=== PATIENT | male | born 1950 | race Caucasian/White ===

== ENCOUNTER → 2016-07-29 | Outpatient (CLI) | payer OTHER ==
[2013-10-26 14:54] VITALS: BP 148/68
[~2016-07-29] MED LIST: ASPI-252 PO; ATOR10TA60 PO; BUDE10.2 IH; CARV3.122 PO; HYDR12.58 PO; MULT-18 PO; REGADENOSON 0.4 MG/5 ML DISP.SYRIN. IV ONE; VENTOLIN HFA18 GM INH
--- NOTE | 2016-07-29 13:34 | RAD ---
APPROVED REPORT Test Type: Pharmacological Stress Nurse/Tech: Loulou Medeiros R.N. Test Indications: CAD Cardiac History: Hypertension, former smoker, CAD, Stents, CABG in 2011 Medications: See Electronic Medical Record Medical History: See Electronic Medical Record Resting ECG: NSR Resting Heart Rate: 72 bpm Resting Blood Pressure: 120/76mmHg Pretest Chest Pain: No chest pain Nurse/Tech Notes S1S2, lungs sound clear Consent: The procedure was explained to the patient in lay terms. Informed consent was witnessed. Kiran eout was entered into [employer]. History and Stress Test performed by Loulou Medeiros R.N. Pharm. Details Pharmacologic stress testing was performed using 0.4mg per 5ml of regadenoson given intravenously ove r 7-10 seconds. Stress Symptoms Dyspnea POST EXERCISE Reason for Termination: Infusion complete Max HR: 117 bpm Max Blood Pressure: 141/65mmHg Blood Pressure response to exercise: Normal blood pressure response during stress. Chest Pain: No. Arrhythmia: Yes. PAC's and occ PVC ST Change: No. INTERPRETATION Stress EKG Conclusion: No evidence of stress induced EKG changes. Imaging Protocol IMAGE PROTOCOL: Rest Tc-99m/stress Tc-99m 1 day Rest: Stress: Viability: Radiopharm.Tc99m FvtbctkakKw24z Sestamibi Dose12.7mCi 36.4mCi Duration 15min. 10min. Img Date 07/29/2016 07/29/2016 Inj-Img Qibm67pzr. 60min. Rest Admin Site:IV - Right AntecubitalAdministrator:RT Tomasa (R)(N) Stress Admin Site: IV - Right AntecubitalAdministrator: STARLA Estrada STRESS DATA End Diast. Vol.93.0mlAv. Heart Rate83.0bpm End Syst. Vol.42.0mlCO Index BSA0.0L/min Myocardial Oeop496.0gEject. Oyleenbw81.0% Stress Rates Pk. Fill Rate3.26EDV/secLVtime Pk. Fill 209.18msec Pk. Empty Rate4.03ESV/secLVtime Pk. Eject91.98msec 05/07 Pk. Fill0.66EDV/sec Stress Scores Regional WT2.00Summed WT15.00 Regional WM0.00Summed WM22.00 LV Perfusion There is a large sized, moderate to severe intensity, inferior, inferolateral, lateral basal to mid v entrical wall that is partially reversible suggestive of prior infarct with kalia-infarct viability. Wall Motion Mild inferior hypokinesis. LV Perf. Quant 17 Seg. SSS12.00 17 Seg. SRS9.00 17 Seg. SDS4.00 Stress Defect Extent (% LAD)0.00Rest Defect Extent (% LAD)0.00Rev. Defect Extent (% LAD)0.00 Stress Defect Extent (% LCX) 92.50Rest Defect Extent (% LCX)62.50Rev. Defect Extent (% LCX)32.50 Stress Defect Extent (% RCA)11.10Rest Defect Extent (% RCA)20.00Rev. Defect Extent (% RCA)0.00 Stress Defect Extent (% ABE)23.90Rest Defect Extent (% ABE)18.00Rev. Defect Extent (% ABE)7.60 Other Information Quality:Average Risk Assessment: Moderate Risk Conclusion 1. No EKG evidence of stress induced changes. 2. Large basal to mid inferolateral wall defect suggestive of prior infarct with mild kalia-infarct re versibility. 3. Normal EF at > 60% 4. Moderate risk study
== END | disposition home or self-care (01) ==
LOC: NM 08:20
PROVIDERS: ATTEND Internal Medicine Cardiovascular Disease
DX: I25.10 Atherosclerotic heart disease of native coronary artery without angina pectoris (principal)
CPT/HCPCS: 78452; 93017; 96374; 96375; 96376; A9500; J2785

== ENCOUNTER → 2016-12-18 | Outpatient (CLI) | payer OTHER ==
[2013-10-26 14:54] VITALS: BP 148/68
[~2016-12-18] MED LIST changes: -REGADENOSON 0.4 MG/5 ML DISP.SYRIN. IV ONE
--- NOTE | 2016-12-18 14:08 | CARD ---
APPROVED REPORT EXAM: Two-dimensional and M-mode echocardiogram with Doppler and color Doppler. Other Information Quality : GoodHR: 66bpm Rhythm : NSR INDICATION Cardiac Disease: CAD 2D DIMENSIONS RVDd3.5 (2.9-3.5cm)Left Atrium(2D)3.2 (1.6-4.0cm) IVSd1.2 (0.7-1.1cm)Aortic Root(2D)3.1 (2.0-3.7cm) LVDd4.3 (3.9-5.9cm)LVOT Diameter2.3 (1.8-2.4cm) PWd1.2 (0.7-1.1cm)LVDs3.8 (2.5-4.0cm) FS (%) 11.8 %SV21.6 ml Aortic Valve AoV Peak Nehemiah.101.7cm/sAoV VTI24.0cm AO Peak GR.4.1mmHgLVOT Peak Nehemiah.85.8cm/s AO Mean GR.3mmHgAVA (VMAX)3.55cm2 Mitral Valve MV E Otlqhifl92.6cm/sMV DECEL YNRJ111vu MV A Lobaxucy04.2cm/sE/A Ratio0.8 MV A Mupiiabk505bk Tricuspid Valve TR P. Rslkvqza325to/sTR Peak Gr.28mmHg Pulmonary Vein S1 Ypqnuqxe71.7cm/sD2 Yxkmgscx69.3cm/s PVa mftdksau68jbcq LEFT VENTRICLE The left ventricle is normal size. There is mild concentric left ventricular hypertrophy. Left ventri krista systolic function is mildly impaired. The Ejection Fraction is estimated at 40% Transmitral Doppl er flow pattern is Grade I-abnormal relaxation pattern. No left ventricle thrombus noted on this stud y. RIGHT VENTRICLE The right ventricle is normal size. There is normal right ventricular wall thickness. The right ventr icular systolic function is normal. ATRIA The left atrium size is normal. The right atrium size is normal. The interatrial septum is intact wit h no evidence for an atrial septal defect or patent foramen ovale as noted on 2-D or Doppler imaging. AORTIC VALVE The aortic valve is mildly thickened. The aortic valve is trileaflet. Doppler and Color Flow revealed no significant aortic regurgitation. There is no significant aortic valvular stenosis. MITRAL VALVE The mitral valve leaflets are thickened. There is no evidence of mitral valve prolapse. There is no m itral valve stenosis. Doppler and Color Flow revealed trace mitral regurgitation. TRICUSPID VALVE Doppler and Color Flow revealed trace tricuspid regurgitation. The pulmonary artery systolic pressure is estimated at 31 mmHg. PULMONIC VALVE The pulmonary valve is not well visualized but appears to open adequately. Doppler and Color Flow rev ealed pulmonic valvular regurgitation. There is no pulmonic valvular stenosis by spectral Doppler. GREAT VESSELS The aortic root is normal in size. The ascending aorta is normal in size. The pulmonary artery is nor mal. The IVC is normal in size and collapses >50% with inspiration. PERICARDIAL EFFUSION There is no evidence of significant pericardial effusion. Critical Notification Critical Value: No <Conclusion> The left ventricle is normal size. Left ventricle systolic function is mildly impaired. The Ejection Fraction is estimated at 40% There is mild concentric left ventricular hypertrophy. There is no significant aortic valvular stenosis. Doppler and Color Flow revealed no significant aortic regurgitation. Doppler and Color Flow revealed trace mitral regurgitation. Doppler and Color Flow revealed trace tricuspid regurgitation. The pulmonary artery systolic pressure is estimated at 31 mmHg.
== END | disposition home or self-care (01) ==
LOC: ECHO 10:47
PROVIDERS: ATTEND Internal Medicine Cardiovascular Disease
DX: I51.7 Cardiomegaly (principal); I25.10 Atherosclerotic heart disease of native coronary artery without angina pectoris
CPT/HCPCS: 93306

== ENCOUNTER → 2017-12-17 | Outpatient (CLI) | payer OTHER ==
[2013-10-26 14:54] VITALS: BP 148/68
--- NOTE | 2017-12-17 12:10 | CARD ---
MR#: [id number] Date of Study: 12/17/2017 Ordering Physician: HARRY SALGADO, Referring Physician: HARRY SALGADO Tech: Yasemin Moon RDCS APPROVED REPORT EXAM: Two-dimensional and M-mode echocardiogram with Doppler and color Doppler. Other Information Quality : Good INDICATION Cardiac Disease: CAD Surgery/Intervention CABD DIMENSIONS RVDd2.7 (2.9-3.5cm)Left Atrium(2D)3.5 (1.6-4.0cm) IVSd1.1 (0.7-1.1cm)Aortic Root(2D)3.4 (2.0-3.7cm) LVDd5.0 (3.9-5.9cm)LVOT Diameter2.2 (1.8-2.4cm) PWd1.0 (0.7-1.1cm)LVDs4.2 (2.5-4.0cm) FS (%) 25.0 %SV42.5 ml LVEF(%)50.0 (>50%) Aortic Valve AoV Peak Nehemiah.97.5cm/sAoV VTI18.9cm AO Peak GR.3.8mmHgLVOT Peak Nehemiah.77.3cm/s AO Mean GR.2mmHgAVA (VMAX)3.13cm2 ATUL (VTI)3.40cm2 Mitral Valve MV E Xbxwyzqe62.1cm/sMV DECEL YTGF115ea MV A Zyexujww31.5cm/sE/A Ratio0.7 Tricuspid Valve TR P. Olbdiylh315px/sRAP JNEDFQXD5irJd TR Peak Gr.27ukGcZLXS80ikNx Pulmonary Vein S1 Xhoinbyh41.9cm/sD2 Edooiuax18.3cm/s LEFT VENTRICLE The left ventricle is normal size. There is normal left ventricular wall thickness. Left ventricle sy stolic function is low normal. The Ejection Fraction is 50-55%. There is normal LV segmental wall mot ion. Transmitral Doppler flow pattern is Grade I-abnormal relaxation pattern. RIGHT VENTRICLE The right ventricle is normal size. The right ventricular systolic function is normal. ATRIA The left atrium size is normal. The right atrium size is normal. The interatrial septum is intact wit h no evidence for an atrial septal defect or patent foramen ovale as noted on 2-D or Doppler imaging. AORTIC VALVE The aortic valve is not well visualized. Doppler and Color Flow revealed trace aortic regurgitation. There is no significant aortic valvular stenosis. MITRAL VALVE The mitral valve is calcified but opens well. There is no evidence of mitral valve prolapse. There is no mitral valve stenosis. Doppler and Color-flow revealed trace mitral regurgitation. TRICUSPID VALVE The tricuspid valve is normal in structure and function. Doppler and Color Flow revealed no tricuspid valve regurgitation noted. There is no tricuspid valve stenosis. PULMONIC VALVE The pulmonic valve is not well visualized. Doppler and Color Flow revealed no pulmonic valvular regur gitation. There is no pulmonic valvular stenosis. GREAT VESSELS The aortic root is normal in size. The ascending aorta is not well seen. The IVC is normal in size an d collapses >50% with inspiration. PERICARDIAL EFFUSION There is no evidence of significant pericardial effusion. Critical Notification Critical Value: No <Conclusion> Left ventricle systolic function is low normal. The Ejection Fraction is 50-55%. There is normal LV segmental wall motion. Signed by : Nick Stoner, Electronically Approved : 12/17/2017 12:08:49
== END | disposition home or self-care (01) ==
LOC: ECHO 10:58
PROVIDERS: ATTEND Internal Medicine Cardiovascular Disease
DX: I25.10 Atherosclerotic heart disease of native coronary artery without angina pectoris (principal); I10 Essential (primary) hypertension; E78.00 Pure hypercholesterolemia, unspecified
CPT/HCPCS: 93306

== ENCOUNTER → 2018-07-03 | Outpatient (CLI) | payer OTHER ==
[2018-02-04 11:00] VITALS: BP 119/72
[~2018-07-03] MED LIST changes: +ASPI-630 PO; +CARV3.1210 PO; -CARV3.122 PO; +DONE10TA61 PO; +IOHEXOL 240 MG/ML 50ML VIAL. PO ONE; +IOHEXOL 300 MG/ML 100ML VIAL. IV ONE
[2018-07-03 09:55] LABS: CREATININE 1.1 mg/dL (0.7-1.3); GFR 66.6
--- NOTE | 2018-07-03 17:23 | RAD ---
CT study of chest and abdomen and pelvis with contrast Clinical indications: 20 pound weight loss over 4 months. TECHNIQUE: After IV infusion of 75 cc of Omnipaque 300, helical CT scanning of the chest and abdomen and pelvis was performed. GI contrast was administered per mouth. PQRS compliance Statement One or more of the following individualized dose reduction techniques were utilized for this study: 1. Automated exposure control 2. Adjustment of the mA and/or kV according to patient size 3. Use of iterative reconstruction technique COMPARISON: No previous chest or abdomen and pelvis CT. CHEST CT: No focal aneurysmal dilatation of the thoracic aorta is seen. No enlarged thoracic lymphadenopathy is evident. Calcified granulomatous lymph nodes of the right hilum are seen. Calcified atheromatous disease of the coronary arteries is seen. The heart size is normal and no pericardial effusion is seen. Calcified atheromatous disease of the coronary arteries is seen. There is wall thickening of the esophagus which may be seen with reflux esophagitis. Calcified granuloma of the posterior right lower lobe is seen. No other lung mass or consolidative lung infiltrate is seen. No pleural effusion or pneumothorax is evident. The proximal bronchial tree is patent. No lytic process is seen. IMPRESSION: No acute abnormality of the chest. Normal heart size. Calcified atheromatous disease of the coronary arteries. There is wall thickening of the esophagus which may be seen with reflux esophagitis. ABDOMEN AND PELVIS CT: Subcentimeter small hypodense nodule of the dome of the right lobe liver is seen. Small subcentimeter hypodense nodule of the caudate lobe is seen adjacent to the hepatic veins. No hepatic mass is seen. The spleen is not enlarged. Pancreas is unremarkable. The gallbladder is normal. No biliary ductal dilatation is seen. No adrenal mass is evident. 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 Left kidney is normal without hydronephrosis or hydroureter. Urinary bladder wall is smooth. There is mild focal aneurysmal dilatation of the distal abdominal aorta just above the bifurcation which measures 3.0 cm in greatest caliber. No enlarged abdominal or pelvic lymphadenopathy is evident. The appendix is normal. No obstructive bowel pattern is evident. No free air or free fluid or mesenteric edema is seen. No lytic process is seen. IMPRESSION: 2 small subcentimeter indeterminate hypodense nodules of the liver are seen. If there is no clinical history of primary malignancy, then these most likely represent small cysts. Small distal abdominal aortic aneurysm measuring 3 cm greatest caliber. No other acute abnormality of the abdomen or pelvis. Electronically signed by: Andrea Correa MD (07/03/2018 5:20 PM) [facility]
== END | disposition home or self-care (01) ==
LOC: CT 09:07
PROVIDERS: ATTEND Family Medicine
DX: I71.4 Abdominal aortic aneurysm, without rupture (principal); I25.10 Atherosclerotic heart disease of native coronary artery without angina pectoris; J84.10 Pulmonary fibrosis, unspecified; K76.89 Other specified diseases of liver; R63.4 Abnormal weight loss
CPT/HCPCS: 36415; 71260; 74177; 82565; 84520; Q9966; Q9967

== ENCOUNTER → 2019-02-04 | Outpatient (CLI) | payer OTHER ==
[2018-02-04 11:00] VITALS: BP 119/72
[~2019-02-04] MED LIST changes: -IOHEXOL 240 MG/ML 50ML VIAL. PO ONE; -IOHEXOL 300 MG/ML 100ML VIAL. IV ONE
--- NOTE | 2019-02-04 10:50 | CARD ---
MR#: [id number] Date of Study: 02/04/2019 Ordering Physician: HARRY SANFORD, Referring Physician: HARRY SANFORD Tech: Sarah Brown RDCS APPROVED REPORT EXAM: Two-dimensional and M-mode echocardiogram with Doppler and color Doppler. Other Information Quality : AverageHR: 63bpm Rhythm : NSR INDICATION CAD 2D DIMENSIONS RVDd3.0 (2.9-3.5cm)Left Atrium(2D)4.0 (1.6-4.0cm) IVSd1.2 (0.7-1.1cm)Aortic Root(2D)3.3 (2.0-3.7cm) LVDd4.9 (3.9-5.9cm)LVOT Diameter2.2 (1.8-2.4cm) PWd1.0 (0.7-1.1cm)IVSs1.4 (0.8-1.2cm) LVDs4.0 (2.5-4.0cm)FS (%) 17.0 % PWs1.2 (0.8-1.2cm)SV39.5 ml Aortic Valve AoV Peak Nehemiah.91.9cm/sAoV VTI17.8cm AO Peak GR.3.4mmHgLVOT Peak Nehemiah.73.8cm/s LVOT VTI 17.99cmAO Mean GR.2mmHg ATUL (VMAX)2.51zm0RNK (VTI)2.80cm2 Mitral Valve MV E Yvpgvsaa14.2cm/sMV DECEL TXOC487xo MV A Jadltxin49.2cm/sMV KHC85hc E/A Ratio0.7MVA (PHT)2.27cm2 TDI E/Lateral E'4.8E/Medial E'7.9 Pulmonary Valve PV Peak Lnrcvkzk87.9cm/sPV Peak Grad.1mmHg Tricuspid Valve TR P. Vmpzqnqw461km/sRAP RNWGVZVF0ifMf TR Peak Gr.05skNkZNLO28vwJn Pulmonary Vein S1 Fmxnuymy16.6cm/sD2 Tktbflmp37.1cm/s LEFT VENTRICLE The left ventricle is normal size. There is mild concentric left ventricular hypertrophy. The left ve ntricular systolic function is low normal. The Ejection Fraction is 50%. There is normal LV segmental wall motion. Transmitral Doppler flow pattern is Grade I-abnormal relaxation pattern. RIGHT VENTRICLE The right ventricle is normal size. There is normal right ventricular wall thickness. The right ventr icular systolic function is normal. ATRIA The left atrium size is normal. The right atrium size is normal. The interatrial septum is intact wit h no evidence for an atrial septal defect or patent foramen ovale as noted on 2-D or Doppler imaging. AORTIC VALVE The aortic valve is normal in structure and function. The aortic valve is trileaflet. Doppler and Col or Flow revealed trace aortic regurgitation. There is no significant aortic valvular stenosis. There is no aortic valvular vegetation. MITRAL VALVE The mitral valve is thickened but opens well. There is no evidence of mitral valve prolapse. There is no mitral valve stenosis. Doppler and Color-flow revealed trace to mild mitral regurgitation. TRICUSPID VALVE The tricuspid valve is normal in structure and function. Doppler and Color Flow revealed trace tricus pid regurgitation. The PA pressure was estimated at 25 mmHg. There is no tricuspid valve prolapse or vegetation. There is no tricuspid valve stenosis. PULMONIC VALVE The pulmonic valve is not well visualized. GREAT VESSELS The aortic root is normal in size. The ascending aorta is normal in size. The IVC is normal in size a nd collapses >50% with inspiration. PERICARDIAL EFFUSION There is no evidence of significant pericardial effusion. Critical Notification Critical Value: No <Conclusion> The left ventricular systolic function is low normal. The Ejection Fraction is 50%. There is normal LV segmental wall motion. Transmitral Doppler flow pattern is Grade I-abnormal relaxation pattern. Trace to mild mitral regurgitation. Trace tricuspid regurgitation. The PA pressure was estimated at 25 mmHg. There is no evidence of significant pericardial effusion. Signed by : Harry Sanford, Electronically Approved : 02/04/2019 10:49:53
== END | disposition home or self-care (01) ==
LOC: ECHO 09:49
PROVIDERS: ATTEND Internal Medicine Cardiovascular Disease
DX: I34.0 Nonrheumatic mitral (valve) insufficiency (principal); I51.7 Cardiomegaly; I25.10 Atherosclerotic heart disease of native coronary artery without angina pectoris
CPT/HCPCS: 93306

== ENCOUNTER 2020-04-03 19:17 | Emergency (ER) | payer MEDICARE, OTHER ==
[~2020-04-03] VITALS: Ht 182.9 cm; Wt 111.0 kg
[2020-04-03] MEDS ORDERED: AZITHRMYCN 500MG IVPB FOR OMNI 250 ML IV ONE (19:45)
[2020-04-03] MEDS ORDERED: IV NORMAL SALINE 1000ML BAG 1,000 ML IV ONE ×2 (19:45)
[2020-04-03] MEDS ORDERED: ACETAMINOPHEN 650 MG SUPP.RECT. PR ONE (19:45)
--- NOTE | 2020-04-03 19:47 | PHYS DOC ---
Past Medical History Past Medical History: CAD, High Cholesterol, Heart Disease, Hypertension Past Surgical History: Coronary Bypass Surgery, Other Additional Past Surgical Histo: 4x bypass Smoking Status: Former Smoker Alcohol Use: None Drug Use: None General Adult HPI: HPI: 70 yo M PMH CAD w/cabg, HTN, PAD, COPD/former smoker, dementia and HLD presents to the ed with concern for cough and shortness of breath for the past week. reports patient has been less active/not getting out of bed, drinking less water and has dark urine. Symptoms started shortly after Thanksgiving. No known family members with Covid. Review of Systems: Review of Systems: ROS: Unobtainable due to dementia Heart Score: Risk Factors: Risk Factors: DM, Current or recent (<one month) smoker, HTN, HLP, family history of CAD, obesity. Risk Scores: Score 0 - 3: 2.5% MACE over next 6 weeks - Discharge Home Score 4 - 6: 20.3% MACE over next 6 weeks - Admit for Clinical Observation Score 7 - 10: 72.7% MACE over next 6 weeks - Early Invasive Strategies Allergies: Allergies: Allergies Coded Allergies Type Severity Reaction Last Updated Verified Penicillins Allergy Mild 10/26/13 Yes Sulfa (Sulfonamide Antibiotics) Allergy Mild 10/26/13 Yes nitroglycerin Allergy Mild 10/26/13 Yes Physical Exam: PE: Constitutional: no acute distress, non-toxic appearance. HENT: Normocephalic, atraumatic, Eyes: EOMI, conjunctiva normal, no discharge. Neck: Normal range of motion, supple, Cardiovascular: S1/2 present, regular rhythm Lungs & Thorax: Not requiring any supplemental oxygen, bilateral equal chest rise, no tachypnea or increased work of breathing Abdomen: soft, no tenderness, Skin: Warm, dry, no erythema, no rash. [] Extremities: No tenderness, no cyanosis, no edema Neurologic: Moving all 4 extremities, no gaze preference, no facial droop Psychologic: Unobtainable due to dementia EKG: EKG: Sinus tachycardia at 101 bpm, right axis deviation, QRS 123, QTC 465, T wave inversion lead III and V2, right bundle branch block present, no ST elevations or ST depressions Radiology/Procedures: Radiology/Procedures: IMAGING REPORT Signed PATIENT: DON PATEL ACCOUNT: [id number] : 1950 LOCATION: ER AGE: 70 SEX: M EXAM STATUS: REG ER ORD. PHYSICIAN: ALEXANDRA MAHARAJ DO REASON: ams PROCEDURE: CT HEAD WO CONTRAST Exam: CT head INDICATION: Altered mental status TECHNIQUE: Sequential axial images through the head were obtained without the administration of IV contrast. Comparisons: None FINDINGS: No focal parenchymal lesion or hemorrhage is identified. There is no midline shift or sulcal effacement. Mild patchy hypodensity in the periventricular white matter. No acute vascular territory infarction is identified. Rice-white distinction is preserved. The ventricular system is within normal limits without compression hydrocephalus. The basal cisterns are well maintained. The visualized portions of the paranasal sinuses and mastoid air cells are well-pneumatized. No acute fractures. IMPRESSION: Mild small vessel ischemic change, technically age indeterminate without recent prior imaging. If there are concerns for acute ischemia MRI would better evaluate. Exposure: One or more of the following in the visualized dose reduction techniques were utilized for this examination: 1. Automated exposure control 2. Adjustment of the MA and/or KV according to patient size Use of iterative of reconstructive technique Electronically signed by: Eloisa Earl MD (04/03/2020 9:02 PM) [facility] DICTATED and SIGNED BY: ELOISA EARL MD DATE: 04/03/20 [id number] 0 Course & Med Decision Making: Course & Med Decision Making Pertinent Labs and Imaging studies reviewed. (See chart for details) COVID-19 CRITERIA: The patient was evaluated during the global COVID-19 pandemic, and that diagnosis was suspected/considered upon their initial presentation. Their evaluation, treatment and testing was consistent with current guidelines for patients who present with complaints or symptoms that may be related to COVID-19. Concern for cough for the past week with a negative Covid test 1 week ago. EMS reported a fever of 100.5 degrees, no fever in the ED, no antipyretics given in the past 6 hours. ED work-up has been unremarkable with negative influenza. Patient afebrile here with no leukocytosis. Urinalysis with no UTI. Covid test requested and pending. Will DC home with supportive management- at bedside and agrees with this plan. reports she could not tell if this was his worsening dementia or an infection. Strict ED return precautions were given for altered mental status, neurologic deficits, dehydration with persistent nausea vomiting diarrhea, or lethargy/fever. Encouraged urgent outpatient follow-up with PMD. Life-threatening processes were considered but are low suspicion at this time, given history and physical exam. Pt was educated on all prescription medications and adverse effects. All patient's questions were answered and pt was stable at time of discharge. Life/limb-threatening differential includes but is not limited to, foreign body, infection/sepsis, congestive heart failure or pulmonary edema, lung cancer intrathoracic mass, bronchoconstriction, asthma/COPD/lung disease exacerbation, pneumothorax or hemothorax, pulmonary emboli, autoimmune/neurologic disease or toxidrome. I spoken with the patient and her caregivers. I explained the patient's condition, diagnoses and treatment plan based on the information available to me at this time. I have answered the patient and her caregiver's questions and addressed any concerns. The patient and her caregivers have a good understanding of patient's diagnosis, condition and treatment plan as can be expected at this point. Vital signs have been stable. Patient's condition is stable and appropriate for discharge from the emergency department. Patient will pursue further outpatient evaluation with primary care physician or other designated or consulting physician as outlined in the discharge instructions. The patient and/or caregivers are agreeable to this plan of care and follow-up instructions have been explained in detail. The patient and/or caregivers have received these instructions in written form and have expressed an understanding of the discharge instructions. The patient and/or caregivers are aware that any significant change of condition or worsening of symptoms should prompt immediate return to this or the closest emergency department or call to 911. Dennise Disclaimer: Dennise Disclaimer: This electronic medical record was generated, in whole or in part, using a voice recognition dictation system. Departure Departure Impression: Primary Impression: Cough Additional Impressions: Person under investigation for COVID-19 Dementia Disposition: 01 DC HOME SELF CARE/HOMELESS Condition: STABLE Referrals: OLU PRIETO MD (PCP) within 7 days for re-evaluation Patient Instructions: Cough, Adult, Dementia Additional Instructions: Return to ED immediately if your oxygen level drops below 90% (purchase a pulse oximetry at a medical supply store), difficulties breathing including rapid breathing or increased work of breathing (skin sucking under ribs), chest pain or stroke-like symptoms. EMERGENCY DEPARTMENT GENERAL DISCHARGE INSTRUCTIONS Thank you for coming to [facility] Emergency Department (ED) today and trusting us with you care. We trust that you had a positive experience in our Emergency Department. If you wish to speak to the department management, you may call the Director at [phone]. YOUR FOLLOW UP INSTRUCTIONS ARE FOLLOWS: 1. Do you have a private Doctor? If you do not have a private doctor, please ask for a resource list of physicians or clinics that may be able to assist you with follow up care. 2. The Emergency Physicain has interpreted your x-rays. The X-Ray specialist will also review them. If there is a change in the findings, you will be notified in 48 hours when at all possible. 3. A lab test or culture has been done, your results will be reviewed and you will be notified if you need a change in treatment. ADDITIONAL INSTRUCTIONS AND INFORMATION: 1. Your care today has been supervised by a physician who is specially trained in emergency care. Many problems require more than one evaluation for a complete diagnosis and treatment. We recommend that you schedule your follow up appointment as recommended to ensure complete treatment of you illness or injury. If you are unable to obtain follow up care and continue to have a problem, or if your condition worsens, we recommend that you return to the ED. 2. We are not able to safely determine your condition over the phone nor are we able to give sound medical advice over the phone. For these safety reasons, if you call for medical advice we will ask you to come to the ED for further evaluation. 3. If you have any questions regarding these discharge instructions please call the ED at [phone]. SAFETY INFORMATION: In the interest of safety, wellness, and injury prevention; we encourage you to wear your sealbelt, if you smoke; quite smoking, and we encourage family to use a protective helmet for bicycling and other sporting events that present an increased risk for head injury. IF YOUR SYMPTOMS WORSEN OR NEW SYMPTOMS DEVELOP, OR YOU HAVE CONCERNS ABOUT YOUR CONDITION; OR IF YOUR CONDITION WORSENS WHILE YOU ARE WAITING FOR YOUR FOLLOW UP APPOINTMENT; EITHER CONTACT YOUR PRIMARY CARE DOCTOR, THE PHYSICIAN WHOSE NAME AND NUMBER YOU WERE GIVEN, OR RETURN TO THE ED IMMEDIATELY. ALEXANDAR MAHARAJ DO Apr 03, 2020 19:47
[2020-04-03] MEDS ORDERED: cefTRIAXone IV Push 1 GM VIAL. IVP ONE (20:00)
[2020-04-03 20:01] LABS: BASO % 1 % (0-3); EOS # 0.1 x10^3/uL (0.0-0.7); EOS % 2 % (0-3); HEMOGLOBIN 13.8 g/dL (13.0-17.5); LYMPH # 1.6 x10^3/uL (1.0-4.8); LYMPH % 17 % (24-48); MEAN CORPUSCULAR HEMOGLOBIN 33 pg (25-35); MEAN CORPUSCULAR HGB CONC 34 g/dL (31-37); MEAN CORPUSCULAR VOLUME 95 fL (79-100); MONO # 1.1 x10^3/uL (0.0-1.1); MONO % 13 % (0-9); NEUT # 6.1 x10^3/uL (1.8-7.7); NEUT % 68 % (31-73); PLATELET COUNT 196 x10^3/uL (140-400); RED BLOOD COUNT 4.22 x10^6/uL (4.30-5.70); RED CELL DISTRIBUTION WIDTH 13.7 % (11.5-14.5)
[2020-04-03 20:15] LABS: CALCIUM 8.8 mg/dL (8.5-10.1); CREATININE 1.1 mg/dL (0.7-1.3); GFR 66.2; POTASSIUM 3.9 mmol/L (3.5-5.1)
[2020-04-03 20:19] LABS: BILIRUBIN,URINE NEGATIVE (NEG); CLARITY,URINE CLEAR; COLOR,URINE YELLOW; NITRITE,URINE NEGATIVE (NEG); PROTEIN,URINE NEGATIVE (NEG-TRACE); UROBILINOGEN,URINE 0.2 mg/dL (0.2 mg/dL)
[2020-04-03 20:22] LABS: ALBUMIN 2.8 g/dL (3.4-5.0); DIRECT BILIRUBIN 0.1 mg/dL (0.0-0.2); TOTAL BILIRUBIN 0.5 mg/dL (0.2-1.0); TOTAL PROTEIN 7.3 g/dL (6.4-8.2)
[2020-04-03 20:25] LABS: AMORPHOUS SEDIMENT,UR PRESENT /HPF; BACTERIA,URINE 0 /HPF (0-FEW); WBC,URINE RARE /HPF (0-4)
[2020-04-03 20:45] LABS: INFLUENZA A PATIENT NEGATIVE (NEGATIVE); INFLUENZA B PATIENT NEGATIVE (NEGATIVE)
--- NOTE | 2020-04-03 21:05 | RAD ---
Exam: CT head INDICATION: Altered mental status TECHNIQUE: Sequential axial images through the head were obtained without the administration of IV contrast. Comparisons: None FINDINGS: No focal parenchymal lesion or hemorrhage is identified. There is no midline shift or sulcal effacement. Mild patchy hypodensity in the periventricular white matter. No acute vascular territory infarction is identified. Rice-white distinction is preserved. The ventricular system is within normal limits without compression hydrocephalus. The basal cisterns are well maintained. The visualized portions of the paranasal sinuses and mastoid air cells are well-pneumatized. No acute fractures. IMPRESSION: Mild small vessel ischemic change, technically age indeterminate without recent prior imaging. If there are concerns for acute ischemia MRI would better evaluate. Exposure: One or more of the following in the visualized dose reduction techniques were utilized for this examination: 1. Automated exposure control 2. Adjustment of the MA and/or KV according to patient size Use of iterative of reconstructive technique Electronically signed by: Eloisa Louise MD (04/03/2020 9:02 PM) [facility]
--- NOTE | 2020-04-03 21:11 | RAD ---
EXAM: Chest, single view. HISTORY: Altered mental status. COMPARISON: CT dated 07/03/2018. FINDINGS: A frontal view of the chest is obtained. There is mild increased interstitial opacity likely due to atelectasis. There is no consolidation, pleural effusion or pneumothorax. The heart is normal in size. There are mediastinal changes. IMPRESSION: Suspected bilateral atelectasis. Electronically signed by: Nivia Cote MD (04/03/2020 9:08 PM) [facility]
[2020-04-03 22:30] VITALS: BP 152/70
[2020-04-03] MEDS ORDERED: ACETAMINOPHEN 500 MG TABLET PO ONE (22:45)
--- NOTE | 2020-04-05 15:26 | NUR ---
IP: Informed pt's of COVID negative results. Pt is non-verbal. She verbalized understanding.
== END 2020-04-03 22:55 | disposition home or self-care (01) ==
LOC: ER 19:17
DX: R05 Cough (principal); Z20.828 Contact with and (suspected) exposure to other viral communicable diseases; F03.90 Unspecified dementia, unspecified severity, without behavioral disturbance, psychotic disturbance, mood disturbance, and anxiety; E78.00 Pure hypercholesterolemia, unspecified; I11.9 Hypertensive heart disease without heart failure; I25.10 Atherosclerotic heart disease of native coronary artery without angina pectoris; Z87.891 Personal history of nicotine dependence; Z95.5 Presence of coronary angioplasty implant and graft; J44.9 Chronic obstructive pulmonary disease, unspecified; Z88.0 Allergy status to penicillin; Z88.2 Allergy status to sulfonamides; Z88.8 Allergy status to other drugs, medicaments and biological substances
CPT/HCPCS: 36415; 70450; 71045; 80048; 80076; 81001; 82550; 83605; 83690; 84484; 85025; 87040; 87804; 93005; 96365; 96375; 99285; J0456; J0696; J7030; U0003; C9803